=== PATIENT | male | born 1955 | race American Indian/Alaskan Native ===

== ENCOUNTER 2016-11-28 06:17 | Day surgery (SDC) | payer MEDICARE ==
[2016-11-28 06:57] VITALS: BMI 25.0
[2016-11-28] MEDS ORDERED: Propofol 10 mg/ml Inj (20 ML) ONE (07:57)
--- NOTE | 2016-11-28 08:25 | CP.SDSHP ---
Same Day Surgery H & P - History Proposed Procedure: Screening colonoscopy Pre-Op Diagnosis: Screening for colon cancer - Previous Medical/Surgical History Cardiac: Hypertension Pulmonary: Emphysema/COPD Endocrine/Metabolic: Diabetes Previous Surgical History: none - Allergies Allergies: Allergies No Known Allergies Allergy (Unverified 11/16/12 17:40) - Current Medications Current Medications: see reconciliation sheet - Physical Exam General Appearance: WD WN male in NAD Vital Signs: Vital Signs 11/28/16 06:58 Temperature 98 F Pulse Rate 80 Respiratory 20 Rate Blood Pressure 115/99 H O2 Sat by Pulse 97 Oximetry Mental Status: Alert & Oriented x3 Neuro: WNL Heart: WNL Lungs: WNL GI: WNL - {Optional Preform as Required} Abdomen: WNL - Impression Impression: Screening for colon cancer Pt. Evaluated Today:Candidate for Anesthesia & Procedure: Yes - Date & Time Date: 11/28/16 Time: 08:25 Short Stay Discharge - Short Stay Discharge Admitting Diagnosis/Reason for Visit: SCREENING Disposition: HOME/ ROUTINE
[2016-11-28 09:12] VITALS: TEMP 96.8
[2016-11-28 09:53] VITALS: BP 146/100; PULSE 69; RESP 16; O2SAT 100
== END 2016-11-28 09:35 | disposition home or self-care (01) ==
LOC: C.ENDO 06:17
PROVIDERS: ATTEND Internal Medicine Gastroenterology
DX: Z12.11 Encounter for screening for malignant neoplasm of colon (principal); K57.30 Diverticulosis of large intestine without perforation or abscess without bleeding; D12.5 Benign neoplasm of sigmoid colon; D12.3 Benign neoplasm of transverse colon
CPT/HCPCS: 45385; 82948; 88305; J2704